=== PATIENT | male | born 1975 | race Caucasian/White ===

== ENCOUNTER 2019-06-25 11:11 | Outpatient (CLI) | payer OTHER ==
--- NOTE | 2019-06-25 13:14 | MRI ---
MRI RIGHT KNEE: DATE: 06/25/2019. PROVIDED CLINICAL HISTORY: Pain. FINDINGS: The anterior cruciate ligament, posterior cruciate ligament, mediocollateral ligament, and lateral co llateral ligamentous complex demonstrate an intact MR appearance. Postoperative changes of prior pat ellar tendon repair are demonstrated. There is a thickened and irregular appearance of the patellar tendon, appearing somewhat attenuated centrally, compatible with sequelae of prior injury. The dary ceps tendon appears intact. The medial and lateral menisci demonstrate no evidence for a tear. No focal articular cartilage defect is apparent. Regional marrow and muscular signal appear normal. Ganglion cyst formation arising from the cranial aspects of the proximal tibiofibular joint is demonstrated, measuring about 2.8 x 0.6 cm in greatest axial dimensions. IMPRESSION: No evidence for an acute process. POS: OFF
== END 2019-06-25 11:12 | disposition home or self-care (01) ==
LOC: SCSMRI 11:11
PROVIDERS: ATTEND Nurse Practitioner Family
DX: M23.8X1 Other internal derangements of right knee (principal)